=== PATIENT | male | born 1985 | race Caucasian/White ===

== ENCOUNTER 2016-12-07 12:56 | Emergency (ER) | payer OTHER ==
[~2016-12-07] VITALS: Ht 175.3 cm; Wt 76.2 kg
--- NOTE | 2016-12-07 13:34 | RADIOLOGY REPORT ---
EXAMINATION: XR RIBS, LEFT CLINICAL INFORMATION: Pain with inspiration/coughing. COMPARISON: None TECHNIQUE: Frontal view of the chest with 3 additional views of the left ribs. FINDINGS: Lungs are clear. No consolidation, pneumothorax, or pleural effusion. The cardiomediastinal silhouette and pulmonary vasculature are normal. Osseous structures are unremarkable. Ribs are intact. No fractures are identified. IMPRESSION: Clear lungs. No focal rib abnormality.
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
== END 2016-12-07 13:53 ==
LOC: ERH 12:56
DX: S20.212A Contusion of left front wall of thorax, initial encounter (principal); W20.8XXA Other cause of strike by thrown, projected or falling object, initial encounter
CPT/HCPCS: 71100-LT